=== PATIENT | male | born 1980 | race Two or more races ===

== ENCOUNTER 2023-06-14 14:17 | Emergency (ER) | payer OTHER ==
[2023-06-14] MEDS ORDERED: LIDOCAINE 2%HCL (LOCAL ANESTH.) INJ 20ML MDV ID ONE (17:15)
[2023-06-14] MEDS ORDERED: BACITRACIN TOP OINT 1 UD PKG TOP ONE (17:15)
[2023-06-14 18:11] VITALS: BP 151/95; PULSE 69; RESP 18; TEMP 97.8; O2SAT 96
== END 2023-06-14 18:13 ==
LOC: ER 14:17 → EDBD 14:17 → EEVIPCON 14:17 → ER 18:12
DX: S02.2XXA Fracture of nasal bones, initial encounter for closed fracture (principal); S01.112A Laceration without foreign body of left eyelid and periocular area, initial encounter; Y08.89XA Assault by other specified means, initial encounter; Y93.89 Activity, other specified; Y92.89 Other specified places as the place of occurrence of the external cause; Y99.8 Other external cause status
CPT/HCPCS: 12011; 70486